=== PATIENT | female | born 1975 | race Caucasian/White ===

== ENCOUNTER 2016-10-28 13:44 | Emergency (ER) | payer MEDICAID ==
[2016-11-21] MEDS ORDERED: LISINOPRIL20 MG PO (10:04)
[2016-11-21] MEDS ORDERED: HYDROCHLOROTHIA25 MG PO (10:04)
[2016-11-21] MEDS ORDERED: NORVASC5 MG PO (10:05)
[2016-11-21] MEDS ORDERED: ALDACTONE DPS25 MG PO (10:07)
[2016-11-21] MEDS ORDERED: PAIN RELIEF TA1 EACH PO (10:07)
[2016-11-21] MEDS ORDERED: PLAVIX75 MG PO (10:08)
[2016-11-21] MEDS ORDERED: LIPITOR DPS10 MG PO (10:08)
[2016-11-21] MEDS ORDERED: LOPRESSOR DPS12.5 MG PO (10:08)
[2016-11-21] MEDS ORDERED: ASPIR 8181 MG PO (10:08)
[2016-11-21] MEDS ORDERED: NICOTINE PATCH1 EAC1 TD (10:09)
--- NOTE | 2016-11-25 21:25 | ER ---
ADMIT: 10/28/2016 RM/LOC: ER [facility] MR#: [id number] [address] [address] ROSA ISELA VILLASENOR [address] [place] [address] Emergency Room Report SEX: F AGE: 41 : 1975 DATE: 10/28/2016 A 41-year-old female, comes to the Emergency Department with three days worth of left flank left-sided abdominal pain, crampy in nature. She had seen her primary doctor for the same two days ago. Describes the pain as moderate, but currently is mild, it is crampy, comes and goes. See T-sheet for remainder of history and physical. CT renal run reveals no acute processes. The patient is diagnosed with abdominal pain. It appears on the there is great deal of stool. She was given lactulose and instructed to follow up with her physician this coming week if no improvement. Alberto Jimenez MD/ marcin JOB #: [id number] CC: Ezra Trimble MD, Attending Physician
== END 2016-10-28 14:55 | disposition home or self-care (01) ==
LOC: ER 13:44
DX: R10.9 Unspecified abdominal pain (principal); F17.210 Nicotine dependence, cigarettes, uncomplicated; I10 Essential (primary) hypertension; Z88.5 Allergy status to narcotic agent; Z79.899 Other long term (current) drug therapy

== ENCOUNTER 2016-11-18 12:10 | Inpatient (IN) | payer MEDICAID ==
[~2016-11-18] VITALS: Ht 162.6 cm; Wt 60.2 kg
--- NOTE | ~2016-11-18 | ECH ---
Transthoracic Echocardiography Report (TTE) Demographics Patient Name ROSA ISELA VILLASENOR Date of Study 11/18/2016 Patient Number [id number] Visit Number [id number] Date of 1975 Room Number 415 Accession Number [id number] Gender Female Age 41 year(s) Referring Devin Zimmer MD Belt Conveyor Drier Anjana Waterman RUST Physician MD Darío Guzman Physician Interpreting King Santiago Zee MD Veterinary Technology Instructor Physician Supervising Ordering Physician King Santiago Zee MD, MD/P Nurse Stress Library Consultant Conclusions Summary Technically adequate exam. The estimated left ventricular ejection fraction is 70%. Severe concentric left ventricular hypertrophy causing left ventricular cavity obliteration. Diastolic assessment reveals Grade I diastolic dysfunction. The left atrium is moderately dilated by LA volume index measurement. Resting LVOT velocity is 2.26 m/s, with a peak gradient of 21 mmHg, and mean gradient of 10.8 mmHg suggestive of left ventricular outflow tract obstruction at rest. During valsalva maneuver, LVOT velocity increases to 2.5 m/s, peak gradient of 24 mmHg, mean gradient of 14.7mmHg consistent with dynamic left ventricle outflow obstruction. No other significant valvular abnormalities. Procedure Type of Study TTE procedure:Echo Complete SF. Procedure Date Date: 11/18/2016 Start: 06:01 PM Technical Quality: Adequate visualization Indications:Chest pain and Elevated Troponin. Additional Indications:elevated BNP Appropriate Use Criteria: 9 Height: 64 inches Weight: 130 pounds BSA: 1.63 m Rhythm: Within normal limits HR: 87 bpm BP: 149/87 mmHg M-Mode/2D Measurements LV Diastolic Dimension: 2.77 cm LV Systolic Dimension: 1.44 cm LV Septum Diastolic: 2.24 cm LV PW Diastolic: 2.77 cm AO Root Dimension: 2.39 cm Cardiac Output: 6.28 l/min LA Dimension: 3.65 cm Cardiac Index: 3.85 l/min*m RV Diastolic Dimension: 2.16 cm LA volume index: 48 ml/m LVOT: 1.83 cm LVOT VTI: 27.45 cm RV Base: 2.9 cm LV Stroke volume: 72.16 ml RV Mid: 1.5 cm LV Stroke volume index: 44.27 ml/m RV Length: 6.2 cm TAPSE: 1.7 cm TDI-S': 25 cm/s Doppler Measurements AV Peak Velocity: 3.63 m/s MV Peak E-Wave: 0.65 m/s AV Peak Gradient: 52.71 mmHg MV Peak A-Wave: 0.91 m/s AV Mean Gradient: 31.67 mmHg MV E/A Ratio: 0.71 LVOT Peak Velocity: 2.26 m/s MV P1/2t: 74.5 msec AV Area (Continuity):1.04 cm MV Deceleration Time: 252.8 msec TR Velocity:2.35 m/s MV Area (PHT): 2.95 cm TR Gradient:22.03 mmHg PV Peak Velocity: 1.52 m/s Estimated RAP:5 mmHg PV Peak Gradient: 9.19 mmHg Estimated RVSP: 27 mmHg Estimated PASP: 27.03 mmHg RA Area: 10.62 cm Findings Left Ventricle Severe concentric left ventricular hypertrophy.Left ventricular cavity obliteration. Diastolic assessment reveals Grade I diastolic dysfunction. Right Ventricle Normal right ventricle structure and function. Left Atrium The left atrium is moderately dilated by LA volume index measurement. Right Atrium Normal right atrial size. Mitral Valve Mild thickening of the mitral valve leaflets. Trivial mitral regurgitation by color Doppler. Aortic Valve Normal aortic valve structure and function. Resting LVOT velocity is 2.26 m/s, with a peak gradient of 21 mmHg, and mean gradient of 10.8 mmHg suggestive of left ventricular outflow tract obstruction at rest. During valsalva maneuver, LVOT velocity increases to 2.5 m/s, peak gradient of 24 mmHg, mean gradient of 14.7mmHg consistent with dynamic left ventricle outflow obstruction. Tricuspid Valve Normal appearing tricuspid valve. Trivial tricuspid regurgitation by color Doppler. Pulmonic Valve The pulmonic valve is not well visualized. Pericardial Effusion No evidence of pericardial effusion. Miscellaneous Visualized portions of the aortic root and ascending aorta appear normal in size. Pleural Effusion No evidence of pleural effusion. Signature
--- NOTE | ~2016-11-18 | FD ---
ADMIT: 11/18/2016 RM/LOC: 415 [facility] MR#: [id number] [address] [address] ROSA ISELA VILLASENOR [place] [address] [place] [address] Final Diagnosis SEX: F AGE: 41 : 1975 ADMISSION DATE: 11/18/2016 DISCHARGE DATE: 11/20/2016 ADMITTING DIAGNOSIS: Chest pain. DISMISSAL DIAGNOSIS: Non-ST elevation myocardial infarction. COMPLICATING DIAGNOSIS: Hypertension. DOOR MANAGER: Santiago Elena MD. Rodrick Beltran MD/ marcin JOB #: [id number] CC: Rodrick Beltran MD, Attending Physician Rodrick Beltran MD, Family Physician
--- NOTE | ~2016-11-18 | CATH ---
Cardiac Diagnostic Report Demographics Patient Name JACKLYN Matt Gender Female Date of 1975 Age 41 year(s) Patient Number [id number] Date of Study 11/19/2016 Visit Number [id number] Room Number 415 Corporate ID Ht 162.56 cm Wt 58.97 kg Accession Number [id number] BSA 1.63 m kg/m Referring King Santiago Zee MD Primary Physician Physician Devin Zimmer MD Performing King Santiago Zee MD Secondary Physician Physician Diagnostic King Santiago Zee MD Assisting Physician Physician Interventional Physician Cpo Physician Findings and Conclusions Diagnostic Findings and Conclusion Obstructive coronary artery disease of the D1. Diagnostic Recommendations Consult bessemer regulator for further management. Procedure Description The patient was brought to the diagnostic cardiac catheterization laboratory in the fasting, non-sedated state. Informed consent was obtained in the written and verbal form after the risks and benefits were explained. The patient had no further questions and agreed to proceed. The planned puncture-incision site(s) were clipped and prepped with ChloraPrep and draped in the usual sterile manner. Conscious sedation, supplemental oxygen, and pain control medications were delivered by a registered nurse under physician guidance. Surface ECG rhythm, blood pressure measurement, and pulse oximetry were monitored throughout the procedure. Arterial access. The right radial access site was infiltrated with lidocaine. The vessel was entered with the Seldinger technique. A 6F sheath was advanced into the vessel and used for catheter placement. Left heart catheterization with ventriculography. A TIG catheter was advanced across the aortic valve to the left ventricle under fluoroscopic guidance. Resting hemodynamics were obtained. With the catheter at the left ventricular apex, contrast was injected. Images were obtained in [place] projections. Post-ventriculography LV pressure was obtained. The catheter was gradually withdrawn into the aorta with continuous pressure recording. Selective right coronary angiography. A TIG catheter was advanced into the right coronary vessel ostium under fluoroscopic guidance. Contrast was injected by hand. Images were obtained in multiple projections. Selective left coronary angiography. An FL3.5 catheter was advanced into the left coronary vessel ostium under Fluoroscopic guidance. Contrast was injected by hand. Images were obtained in multiple projections. Hemostasis: The sheath(s) was secured in place. A pressurized flush bag was connected to the side port of the sheath. The patient was transferred to a regular nursing floor via cart accompanied by a nurse. The patient left the laboratory in stable condition. Procedure Procedure Type Diagnostic procedure:Ventriculogram:, Left, Angiography:, Coronary Angios /[facility] Indications: Chest pain, Non-ST elevation TN, Tobacco use-current and Hypertension. The procedure was explained in detail to the patient. Risks, complications and alternative treatments were reviewed. Written consent was obtained. Medications Reviewed with Patient prior to Procedure. Complications: Non complication. Angiographic Findings Dominance: Right Cardiac Arteries and Lesion Findings LMCA: Normal (0% Stenosis). LAD: Abnormal. Lesion on Prox LAD: 20% stenosis . Lesion on 1st Diag: Ostial.80% stenosis . Pre procedure SHASHA III flow was noted. Culprit lesion. LCx: Abnormal. Lesion on Prox CX: 20% stenosis . RCA: Minor Luminal Irregularities. Coronary Tree Procedure Data Procedure Date Date: 11/19/2016Start: 09:43 AM Entry Locations - Percutaneous access was performed through the Right Radial artery (Primary location). A 6 Fr sheath was inserted. Hemostasis was successfully obtained using a pressurized flush bag which was connected to the sheath and it was sutured in place . Procedure Medications Order and Administration + + +-------+-------+ !Time !Medication !Dosage !Route ! + + +-------+-------+ !11/19/2016 !Versed !2 mg !I.V. ! !09:41 AM ! ! ! ! + + +-------+-------+ !11/19/2016 !Fentanyl !50 mcg !I.V. ! !09:41 AM ! ! ! ! + + +-------+-------+ !11/19/2016 !Sodium Chloride !10 ml !I.V. ! !09:41 AM ! ! ! ! + + +-------+-------+ !11/19/2016 !Versed !1 mg !I.V. ! !09:45 AM ! ! ! ! + + +-------+-------+ 11/19/2016 !Fentanyl !25 mcg !I.V. ! !09:45 AM ! ! ! ! + + +-------+-------+ !11/19/2016 !SF Radial Cocktail: 200mcg Nitro, 2.5 mg ! !I.A. ! !09:46 AM !Verapamil, 5000u Heparin ! ! ! + + +-------+-------+ !11/19/2016 !Versed !1 mg !I.V. ! !09:52 AM ! ! ! ! + + +-------+-------+ !11/19/2016 !Fentanyl !25 mcg !I.V. ! !09:52 AM ! ! ! ! + + +-------+-------+ Devices Used - A6 Fr6F TIG CATHETERwas used for:BilateralCoronary Angios. - A6 FrCATH 6FR FL3.5 CATHETER 100CMwas used for:LeftsideCoronary Angios. Contrast Material - Isovue 35877 ml Fluoroscopy Time: Diagnostic: 1:42 minutes. Total: 1:42 minutes. Fluoroscopy Dose: Diagnostic: 159 mGy. Total: 159 mGy. Estimated Blood Loss: 5 ml. Medical History Allergies - Codiene. Risk Factors The patient risk factors include:treated hypertension, family history of premature CAD, last creatinine: 0.9 mg/dl, creatinine clearance: 76.58 ml/min and Current/Recent(w/in 1 year) tobacco use. Admission Data Admission Date: 11/18/2016 Admission Time: 02:20 PM Clinical Evaluation Leading to Procedure Diagnosed on 11/19/2016 09:30 AM. - The patient's CAD presentation was assessed as: Non-STEMI. VA LV function assessed as:Normal. Ejection Fraction - 11/19/2016 - Method: LV gram. EF%: 70. Hemodynamics Condition: Rest O2 Consumption: Estimated: 175.57Heart Rate: 87 bpm Pressures (mmHg) +-----+ + !Site !Pressure ! +-----+ + !LV !160/1 ,19 ! +-----+ + !AO !134/87 (109) ! +-----+ + !LV !160/2 ,33 ! +-----+ + !AO !119/71 (90) ! +-----+ + Valve Gradients and Areas + +---------+---------+---------+ +---------+ + !Valve !Peak !Mean !Area !Index !Flow !Source ! + +---------+---------+---------+ +---------+ + !Aortic !25 !17 ! ! ! ! ! + +---------+---------+---------+ +---------+ + !Aortic !25 !17 ! ! ! ! ! + +---------+---------+---------+ +---------+ + Shunts Oxygen Values O2 Capacity 206.72 O2 Consumption 175.57 Discharge Data Discharge Date: 11/20/2016 Hospital Status: Inpatient Signatures
--- NOTE | 2016-11-18 22:03 | ER ---
ADMIT: 11/18/2016 RM/LOC: 415 [facility] MR#: [id number] [address] [address] ROSA ISELA VILLASENOR [address] [place] [address] Emergency Room Report SEX: F AGE: 41 : 1975 DATE: 11/18/2016 HISTORY OF PRESENT ILLNESS: The patient is a 41-year-old female with a past medical history of hypertension, kidney stone, and a strong family history of coronary artery disease, father because of heart attack at age of 45, came to the ER with chief complaint of chest pain and shortness of breath for 2 days. The patient states chest pain is at the base of the neck anteriorly and midchest, and she had it since yesterday and is intermittent and comes and goes and sometimes it is related to exertion and walking. The patient states she has mild shortness of breath too, it is also intermittent. The patient states she has previous chest pain and 2 years ago, she had an echocardiogram in [place]. The patient denies being diagnosed with any acute coronary artery syndrome or congestive heart failure. At the moment, the patient states the pain is resolved but she has very mild shortness of breath. PHYSICAL EXAMINATION: GENERAL: The patient is alert and oriented, in no obvious pain or distress, received aspirin in the ER. VITAL SIGNS: Blood pressure was 135/80. The patient was mildly tachycardic with heart rate of 101. EKG was showing sinus tachycardia with inverted T- waves in leads V4, V5, V6, and lateral leads I and aVL. There is some questionable [address]-elevation in V1 and V2. The patient was offered nitroglycerin sublingual, but states the pain is already resolved. The patient is on monitoring. HEAD AND NECK: Noncontributory. CHEST: Clear to auscultation bilaterally. HEART: S1 and S2 are normal. There is holosystolic murmur on the left lower sternal border. ABDOMEN: Soft and nontender. EXTREMITIES: Nontender. Nonedematous. The rest of the physical exam is noncontributory. LABORATORY STUDIES: Chest x-ray was negative. D-dimer was also negative too. ProBNP was elevated to 3300. Troponin I level was 0.361. Family Medicine was consulted. EKG was repeated without any changes from previous EKG. The patient was admitted for chest pain, rule out non-ST elevation myocardial infarction, acute coronary artery syndrome. George Gordillo MD/ marcin JOB #: [id number] CC: Rodrick Beltran MD, Attending Physician Rodrick Beltran MD, Family Physician
[2016-11-21] MEDS ORDERED: LISINOPRIL20 MG PO (10:04)
[2016-11-21] MEDS ORDERED: HYDROCHLOROTHIA25 MG PO (10:04)
[2016-11-21] MEDS ORDERED: NORVASC5 MG PO (10:05)
[2016-11-21] MEDS ORDERED: PAIN RELIEF TA1 EACH PO (10:07)
[2016-11-21] MEDS ORDERED: ALDACTONE DPS25 MG PO (10:07)
[2016-11-21] MEDS ORDERED: ASPIR 8181 MG PO (10:08)
[2016-11-21] MEDS ORDERED: LOPRESSOR DPS12.5 MG PO (10:08)
[2016-11-21] MEDS ORDERED: PLAVIX75 MG PO (10:08)
[2016-11-21] MEDS ORDERED: LIPITOR DPS10 MG PO (10:08)
[2016-11-21] MEDS ORDERED: NICOTINE PATCH1 EAC1 TD (10:09)
--- NOTE | 2016-11-22 14:08 | CO ---
ADMIT: 11/18/2016 RM/LOC: 415 [facility] MR#: [id number] [address] [address] ROSA ISELA VILLASENOR [address] [place] [address] Consultation SEX: F AGE: 41 : 1975 DATE OF CONSULTATION: 11/19/2016 ATTENDING PHYSICIAN: Rodrick Beltran CONSULTING PHYSICIAN: Santiago Elena MD CHIEF COMPLAINT: Chest pain. HISTORY OF PRESENT ILLNESS: The patient is a 41-year-old female, who presented to the hospital with worsening chest pain. She states that she has had chest pain on and off for the last 3 years, but in the last couple of days has gotten worse. She describes it as a tightness or fullness that occurs and may happen with activity, but also can happen at rest. She has had some occasional shortness of breath, but denies any palpitations. She denies any nausea or vomiting. Because of her continued symptoms, she presented to the emergency room. There, she was noted to have a troponin that was in the 0.3 range. She also had EKG with LVH and other ST-T wave changes. For that reason, she was admitted and we are seeing her for further evaluation. The patient does have a history of smoking as well as a longstanding history of hypertension. She also has a family history of coronary artery disease. There were no other complaints. PAST MEDICAL HISTORY: Significant for: 1. Nephrolithiasis. 2. Childbirth. 3. Hypertension. FAMILY HISTORY: Significant for father at age 43 of sudden playing softball. There was no definitive history for coronary artery disease, heart attack, or stent/bypass. SOCIAL HISTORY: The patient lives at home with her mother and is . She has 1 daughter. She smokes a pack of cigarettes a day, has occasional alcohol use. She is not currently working. REVIEW OF SYSTEMS: GENERAL: Denies fatigue, fever, chills, sweats, rash, or weight loss. EYES: Denies double vision, blurred vision, cataracts, or glaucoma. ENT: Denies hearing loss or problems with nose, mouth or throat. PULMONARY: Denies cough, sputum production, asthma, emphysema or bronchitis. Denies snoring loudly, wakefulness at night, or fatigue upon awakening. GASTROINTESTINAL: Denies heartburn or difficulty swallowing. No change in bowel habits. Denies dark or bloody stools. No history of ulcers, hiatal hernia, or gallbladder or liver disease. GENITOURINARY: Denies dysuria, hematuria, nocturia, urinary tract infection, or kidney stones. Denies history of renal insufficiency or failure. MUSCULOSKELETAL: Denies history of arthritis or gout. Denies muscle or joint pains. ADMIT: 11/18/2016 RM/LOC: 415 [facility] MR#: [id number] [address] [address] [place] [address] Consultation SEX: F AGE: 41 : 1975 ENDOCRINE: Denies history of thyroid dysfunction or diabetes. HEMATOLOGIC: Denies history of anemia, easy bruising, or cancer. NEUROLOGIC: Denies chronic headaches, dizziness, syncope, stroke, seizures or numbness or tingling. PSYCHIATRIC: Denies history of mental illness or feelings of depression. CHEST: She has chest pain. ALLERGIES: NONE. HOME MEDICATIONS: 1. Aspirin 81 mg daily. 2. HydroDIURIL 25 mg daily. 3. Lipitor 20 mg at night. 4. Lopressor 12.5 mg b.i.d. 5. Norvasc 5 mg daily. 6. Zestril 20 mg daily. PHYSICAL EXAMINATION: VITAL SIGNS: Blood pressure was 138/91, heart rate 93, respirations 18, temperature 98 degrees Fahrenheit. SKIN: [place], warm and dry. EYES: Sclerae clear. No xanthelasmas. ENT: Oral mucosa is pink and moist. No jugular venous distention or carotid bruits. CHEST: Respirations are even and unlabored. Lungs are clear to auscultation. HEART: There is a 2/6 systolic ejection murmur. ABDOMEN: Soft and nontender. MUSCULOSKELETAL: Gait is normal. EXTREMITIES: Peripheral pulses palpable. No clubbing, cyanosis or edema. PSYCHIATRIC: Alert and oriented. Mood and affect are appropriate. ASSESSMENT: 1. Chest pain. 2. Dbd-IE-ekzibnd elevated myocardial infarction. 3. Hypertension. 4. Left ventricular outflow tract obstruction. ADMIT: 11/18/2016 RM/LOC: 415 [facility] MR#: [id number] [facility] [address] [address] ROSA ISELA VILLASENOR [address] [place] [address] Consultation SEX: F AGE: 41 : 1975 PLAN: The patient did have elevated troponins and chest pain. I would like to do a heart catheterization to make sure there is no evidence of coronary artery disease as a cause of her symptoms as she does have multiple risk factors. I believe her heart murmur is probably left ventricular outflow tract obstruction from her significant left ventricular hypertrophy. I have also believed that her left ventricular hypertrophy is likely due to uncontrolled hypertension for many years, so we will need to do aggressive treatment of the blood pressure. We will decide further treatment once the heart catheterization is complete. Santiago Elena MD/ marcin JOB #: [id number] CC: Rodrick Beltran, Attending Physician Rodrick Beltran, Family Physician Rodrick Beltran MD
--- NOTE | 2016-11-23 07:22 | HP ---
ADMIT: 11/18/2016 RM/LOC: 415 [facility] MR#: [id number] [address] [address] ROSA ISELA VILLASENOR [address] [place] [address] History and Physical SEX: F AGE: 41 : 1975 DATE OF SERVICE: CHIEF COMPLAINT: Chest pain. HISTORY OF PRESENT ILLNESS: The patient is a 41-year-old female with hypertension, but smokes a pack per day, who has been having chronic chest pain with recent severe exacerbations for the last about 3 years. She states that she has had these episodes of chest pain with exertion for several years. She was seen in the [place] ER about a year ago, and they did an echo that showed some fluid around her heart, which they gave her some medications for. She follows here with Yenifer Stanley at [facility], who manages her hypertension. She is currently on three hypertension medications and does have some resistant hypertension as well. She has a family history of premature coronary artery disease. Her father at age 43. Her mom has also had a heart attack and had two stents at age 60. Today, she noted that she was going up a flight of stairs and became extremely short of breath, had substernal chest pain with some diaphoresis and nausea. The chest pain is pretty typical for her, it usually is relieved with rest, but the nausea and diaphoresis that was lasting was atypical, so she came into the ER for further evaluation. In the ER, troponin was elevated at 0.36 and EKG shows some inverted T-waves in V3 through V6 as well as limb leads I through III. She was also noted to have a previously undocumented left lower sternal border holosystolic murmur. She is admitted for cardiac workup. PAST MEDICAL HISTORY: Kidney stones, high blood pressure. FAMILY HISTORY: Father at age 43 of heart attack. Mom is still living, has high blood pressure and coronary artery disease, status post two stents at age 60. SOCIAL HISTORY: The patient lives at home with her mom, is , does have one daughter. Smokes a pack per day. Occasional alcohol use. REVIEW OF SYSTEMS: A 10-point review of systems was performed and is negative except as noted above per HPI. MEDICATIONS: Include hydrochlorothiazide, lisinopril, and amlodipine. ALLERGIES: NO KNOWN MEDICAL ALLERGIES. PHYSICAL EXAMINATION: VITAL SIGNS: Temp 97.8, heart rate 104, respiratory rate 20, blood pressure 149/87, and O2 saturation 98% on room air. GENERAL: The patient is in no acute distress. Awake, alert, and oriented. She does smell of tobacco smoke. HEENT: Normocephalic, atraumatic. EOMI. Mucous membranes are moist. NECK: Shows no JVD. No carotid bruit noted. No lymphadenopathy palpated. CHEST: Nontender to palpation. Shows no deformities. CARDIOVASCULAR: The patient has a holosystolic 3/6 murmur best heard at the left lower sternal border. She does have a prominent S1 and S2. ADMIT: 11/18/2016 RM/LOC: 415 [facility] MR#: [id number] [facility] [address] [address] [place] [id number] [place] [id number] History and Physical SEX: F AGE: 41 : 1975 PULMONARY: Clear to auscultation bilaterally. ABDOMEN: Soft, nontender, and nondistended with normoactive bowel sounds. EXTREMITIES: No clubbing, cyanosis, or edema. Radial and DP pulses 2+ in upper and lower extremities bilaterally. MUSCULOSKELETAL: The patient has no tenderness over chest or shoulders. Spontaneously moves all extremities. NEUROLOGIC: Cranial nerves II through XII grossly intact. No focal neurological deficits. LABS AND IMAGING: White count 12.3, hemoglobin 16.8, and platelets 264. BMP is essentially normal. Troponin is 0.361. BNP is 3345. CK is 81, MB is 3.4 with a relative index of 4.2. Chest x-ray shows some borderline hypertrophy. ASSESSMENT AND PLAN: 1. Unstable angina. We will have Cardiology consulted. We will trend her enzymes getting the echo. 2. Hypertension. Continue her home medications. 3. Tobacco use. Put her on nicotine replacement, and given her cardiac complaints, would highly encourage tobacco cessation. 4. New murmur. Again, we will get an echo in the morning. Darío Guzman MD Resident / Rodrick Beltran MD / marcin JOB #: [id number] CC: Rodrick Beltran, Attending Physician Rodrick Beltran, Family Physician
== END 2016-11-20 12:36 | disposition home or self-care (01) | DRG 282 ==
LOC: ER 12:10 → 4PCU 14:20
PROVIDERS: ADMIT Family Medicine
PROC: B2151ZZ Fluoroscopy of Left Heart using Low Osmolar Contrast (ICD-10-PCS; principal; 2016-11-19)
PROC: 4A023N7 Measurement of Cardiac Sampling and Pressure, Left Heart, Percutaneous Approach (ICD-10-PCS; principal; 2016-11-19)
PROC: B2111ZZ Fluoroscopy of Multiple Coronary Arteries using Low Osmolar Contrast (ICD-10-PCS; principal; 2016-11-19)
DX: I21.4 Non-ST elevation (NSTEMI) myocardial infarction (principal); I10 Essential (primary) hypertension; I25.10 Atherosclerotic heart disease of native coronary artery without angina pectoris; F17.210 Nicotine dependence, cigarettes, uncomplicated; R01.1 Cardiac murmur, unspecified; Z82.49 Family history of ischemic heart disease and other diseases of the circulatory system; Z79.82 Long term (current) use of aspirin

== ENCOUNTER → 2017-01-15 | Outpatient (CLI) | payer MEDICAID ==
[~2017-01-15] MED LIST: ALDACTONE DPS25 MG PO; ASPIR 8181 MG PO; HYDROCHLOROTHIA25 MG PO; LIPITOR DPS10 MG PO; LISINOPRIL20 MG PO; LOPRESSOR DPS12.5 MG PO; NICOTINE PATCH1 EAC1 TD; NORVASC5 MG PO; PAIN RELIEF TA1 EACH PO; PLAVIX75 MG PO
== END | disposition home or self-care (01) ==
LOC: RESC 08:46
DX: R06.02 Shortness of breath (principal)